=== PATIENT | male | born 1965 | race Caucasian/White ===

== ENCOUNTER 2023-05-11 07:14 | Emergency (ER) | payer MEDICAID ==
[~2023-05-11] VITALS: Ht 172.7 cm; Wt 77.1 kg
[2023-05-11 07:19] VITALS: BP 138/87; PULSE 63; RESP 18; TEMP 98.3; O2SAT 97
[2023-05-11] MEDS ORDERED: BACITRACIN OINT 500 UNITS/GM PKT TP ONE ×2 (08:25)
[2023-05-11] MEDS ORDERED: KETOROLAC 60 MG/2 ML VIAL IM ONE (08:25)
[2023-05-11] MEDS ORDERED: IBUP-2213 PO (08:37)
== END 2023-05-11 08:43 | disposition home or self-care (01) ==
LOC: MED 07:14
DX: S81.811A Laceration without foreign body, right lower leg, initial encounter (principal); Z98.890 Other specified postprocedural states; W23.0XXA Caught, crushed, jammed, or pinched between moving objects, initial encounter; Y93.89 Activity, other specified; Y92.89 Other specified places as the place of occurrence of the external cause; Y99.8 Other external cause status
CPT/HCPCS: 96372; 99283; J1885